=== PATIENT | female | born 2000 | race Caucasian/White ===

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

== ENCOUNTER → 2021-11-04 | Outpatient (CLI) | payer OTHER | END | disposition home or self-care (01) | LOC: LAB 16:30 → LAB SHORT 16:30 | DX: N76.0 Acute vaginitis (principal) | CPT/HCPCS: 87070; 87077; 87186; 87205 ==

== ENCOUNTER 2024-05-28 18:15 | Inpatient (IN) | payer OTHER ==
[~2024-05-28] VITALS: Ht 165.1 cm; Wt 73.0 kg
[2024-05-28] VITALS (19 sets, daily range): BP systolic 114–163; BP diastolic 68–107
[2024-05-28] MEDS ORDERED: Oxytocin 10 Unit / ML Vial IM PRN (18:30)
[2024-05-28] MEDS ORDERED: Acetaminophen 500 MG Tab PO PRN (18:30)
[2024-05-28] MEDS ORDERED: OXYTOCIN/RINGER'S LACTATE 500 ML IV PRN (18:30)
[2024-05-28] MEDS ORDERED: Misoprostol 200 MCG Tab PR PRN (18:30)
[2024-05-28] MEDS ORDERED: Tranexamic Acid 100 ML IV SCH (18:30)
[2024-05-28] MEDS ORDERED: ePHEDrine Sulfate 50 MG/ML 1ML Injection XX PRN (18:30)
[2024-05-28] MEDS ORDERED: Carboprost Tromethamine 250 MCG/ML 1ML Amp IM PRN (18:30)
[2024-05-28] MEDS ORDERED: Methylergonovine Maleate 0.2MG / ML 1ML Amp IM PRN (18:30)
[2024-05-28] MEDS ORDERED: FentaNYL 2mcg/ml-Bup 0.1% Epd 250 ML EPI PRN (18:30)
[2024-05-28] MEDS ORDERED: Lactated Ringer's 1,000 ML IV SCH ×2 (18:30)
[2024-05-28] MEDS ORDERED: Misoprostol 200 MCG Tab BC PRN (18:30)
[2024-05-28] MEDS ORDERED: Lactated Ringer's 1,000 ML IV PRN (18:30)
[2024-05-28] MEDS ORDERED: Calcium Carbonate 500 MG Tab Chew PO SCH (18:35)
[2024-05-28] MEDS ORDERED: Ondansetron HCl 2 MG / ML 2ML Vial IV PRN (18:35)
[2024-05-28 18:44] LABS: BASOPHILS ABSOLUTE AUTO 0.02 K/mm3 (0.00-0.23); BASOPHILS PERCENT AUTO 0 % (0-2); EOSINOPHILS ABSOLUTE AUTO 0.01 K/mm3 (0.00-0.68); EOSINOPHILS PERCENT AUTO 0 % (0-6); Hematocrit 34.4 % (33.0-51.0); Hemoglobin 11.3 g/dL (11.5-16.0); IMMATURE GRAN ABSOLUTE AUTO 0.06 K/mm3 (0.00-0.10); IMMATURE GRAN PERCENT AUTO 1 % (0-1); LYMPHOCYTES PERCENT AUTO 11 % (21-46); MONOCYTES ABSOLUTE AUTO 0.66 K/mm3 (0.16-1.47); MONOCYTES PERCENT AUTO 5 % (4-13); Mean Corpuscular HGB 27.8 pg (26.0-34.0); Mean Corpuscular HGB Conc 32.8 g/dL (31.5-36.5); Mean Corpuscular Volume 85 fL (80-100); Mean Platelet Volume 9.4 fL (9.1-12.4); NEUTROPHILS PERCENT AUTO 83 % (41-73); Platelet Count 229 K/mm3 (150-400); RDW Coefficient Variation 13.3 % (11.7-14.2); RDW Standard Deviation 40.8 fL (35.1-46.3); Red Blood Cell Count 4.06 M/mm3 (3.80-5.20); White Blood Cell Count 12.85 K/mm3 (4.00-11.30)
[2024-05-28] MEDS ORDERED: PRENATAL TABLE1 EAC2 PO (18:52)
[2024-05-28] MEDS ORDERED: ePHEDrine Sulfate 50 MG/ML 1ML Injection ONE (18:57)
[2024-05-28] MEDS ORDERED: OXYTOCIN/RINGER'S LACTATE 500 ML IV SCH (22:50)
[2024-05-29] VITALS (35 sets, daily range): BP systolic 104–157; BP diastolic 65–102
[2024-05-29] MEDS ORDERED: Carboprost Tromethamine 250 MCG/ML 1ML Amp IM PRN (05:05)
[2024-05-29] MEDS ORDERED: Rho(D) Immune Globulin 300 MCG / SYR IM PRN (05:05)
[2024-05-29] MEDS ORDERED: Benzocaine Topical Anesthetic Spray 60GM TOP PRN (05:05)
[2024-05-29] MEDS ORDERED: OXYTOCIN/RINGER'S LACTATE 500 ML IV SCH (05:05)
[2024-05-29] MEDS ORDERED: Witch Hazel/Glycerin PADS TOP PRN (05:10)
[2024-05-29] MEDS ORDERED: Misoprostol 100 MCG Tab PO PRN (05:10)
[2024-05-29] MEDS ORDERED: OxyCODONE 5 mg/Acetamin 325 mg TABLET PO PRN (05:10)
[2024-05-29] MEDS ORDERED: Lanolin Cream TOP PRN (05:10)
[2024-05-29] MEDS ORDERED: Diphth,Pertuss(Acell),Tet Vac 0.5 ML VIAL IM ONE (05:10)
[2024-05-29] MEDS ORDERED: FLU VACC TS2024-25(6MOS UP)/PF 45 MCG/0.5 ML SYRINGE IM ONE (05:10)
[2024-05-29] MEDS ORDERED: Acetaminophen 325 MG TABLET PO PRN (05:10)
[2024-05-29] MEDS ORDERED: Docusate Sodium 100 MG Cap PO PRN (05:10)
[2024-05-29] MEDS ORDERED: Ibuprofen 400 MG Tab PO PRN (05:15)
[2024-05-29] MEDS ORDERED: Ketorolac Tromethamine 30mg Vial IV PRN (05:15)
[2024-05-29] MEDS ORDERED: Lactated Ringer's 1,000 ML IV SCH (05:15)
[2024-05-29] MEDS ORDERED: Prenatal Vit/FE Fumarate/FA 1 Tab PO SCH (09:00)
[2024-05-30 04:53] VITALS: BP 134/97
[2024-05-30 07:01] LABS: Hematocrit 28.7 % (33.0-51.0); Hemoglobin 9.1 g/dL (11.5-16.0); Mean Corpuscular HGB 27.4 pg (26.0-34.0); Mean Corpuscular HGB Conc 31.7 g/dL (31.5-36.5); Mean Corpuscular Volume 86 fL (80-100); Mean Platelet Volume 9.7 fL (9.1-12.4); Platelet Count 217 K/mm3 (150-400); RDW Coefficient Variation 13.7 % (11.7-14.2); RDW Standard Deviation 42.6 fL (35.1-46.3); Red Blood Cell Count 3.32 M/mm3 (3.80-5.20); White Blood Cell Count 10.61 K/mm3 (4.00-11.30)
[2024-05-30 08:23] VITALS: BP 137/99
[2024-05-30 08:25] VITALS: BP 135/96
[2024-05-30 17:32] VITALS: BP 127/86
[2024-05-30 19:35] VITALS: BP 126/82
--- NOTE | 2024-05-31 06:23 | NUR ---
parents encouraged to rest ++. Range Operator offered to take babe many times. parents had maybe 1-2 hours of sleep throughout night. mom appears ++ exhausted.
[2024-05-31 07:06] VITALS: BP 138/91
[2024-05-31 11:38] VITALS: BP 120/79
[2024-05-31] MEDS ORDERED: IBUP800 PO (11:52)
--- NOTE | 2024-05-31 11:54 | NUR ---
DISCHARGE INSTRUCTIONS DISCUSSED. BOARDER MOM INSTRUCTIONS GIVEN. MOM AND DAD VERBALIZE UNDERSTANDING. PPFU SCHEDULED FOR MOM AND BABY 06/02 AT 1400.
== END 2024-05-31 12:38 | disposition home or self-care (01) | DRG 807 ==
LOC: OBS 18:15 → BC 18:16 → OBS 18:22 → BC 19:32
PROVIDERS: ADMIT Advanced Practice Midwife
PROC: 10E0XZZ Delivery of Products of Conception, External Approach (ICD-10-PCS; principal; 2024-05-29)
PROC: 0HQ9XZZ Repair Perineum Skin, External Approach (ICD-10-PCS; 2024-05-29)
PROC: 3E0R3BZ Introduction of Anesthetic Agent into Spinal Canal, Percutaneous Approach (ICD-10-PCS; 2024-05-29)
PROC: 00HU33Z Insertion of Infusion Device into Spinal Canal, Percutaneous Approach (ICD-10-PCS; 2024-05-29)
DX: O48.0 Post-term pregnancy (principal); Z37.0 Single live birth; Z3A.40 40 weeks gestation of pregnancy; O76 Abnormality in fetal heart rate and rhythm complicating labor and delivery; O70.0 First degree perineal laceration during delivery; O77.0 Labor and delivery complicated by meconium in amniotic fluid; O16.5 Unspecified maternal hypertension, complicating the puerperium; Z91.040 Latex allergy status; Z88.1 Allergy status to other antibiotic agents
CPT/HCPCS: 36415; 51702; 85025; 85027; 85460; 86850; 86870; 86900; 86901; A9270; J1885; J2590; J2791; J7120